=== PATIENT | male | born 2005 | race Two or more races ===

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

== ENCOUNTER 2024-07-17 10:33 | Emergency (ER) | payer MEDICAID, OTHER ==
[~2024-07-17] VITALS: Ht 162.6 cm; Wt 110.5 kg
[2024-07-17] MEDS: FLUORESCEIN SOD OPTH TEST STRIP OP ONE (12:25)
[2024-07-17 12:45] VITALS: BP 150/94; PULSE 90; RESP 16; TEMP 97.8; O2SAT 99
[2024-07-17] MEDS ORDERED: TOB03OS OP (12:45)
== END 2024-07-17 13:26 | disposition home or self-care (01) ==
LOC: ER 10:33
DX: S05.01XA Injury of conjunctiva and corneal abrasion without foreign body, right eye, initial encounter (principal); F17.210 Nicotine dependence, cigarettes, uncomplicated; Z79.899 Other long term (current) drug therapy; X58.XXXA Exposure to other specified factors, initial encounter; Y93.89 Activity, other specified; Y92.89 Other specified places as the place of occurrence of the external cause; Y99.0 Civilian activity done for income or pay